=== PATIENT | male | born 1960 | race Caucasian/White ===

== ENCOUNTER 2018-06-16 21:55 | Emergency (ER) | payer SELFPAY ==
--- NOTE | 2018-06-16 21:58 | ER Report ---
History and Physical Time Seen By MD: 21:58 HPI/ROS CHIEF COMPLAINT: Right flank pain HISTORY OF PRESENT ILLNESS: Patient is a 57-year-old male here with complaints of right flank pain which started this morning. Per patient report, the pain became unbearable this evening prompting evaluation. Patient reports prior history of nephrolithiasis with similar symptoms of right flank pain and CVA tenderness and radiation to the right groin. Patient denies trauma, fevers, chills, chest pain, shortness breath. Patient is in moderate distress at time of evaluation. REVIEW OF SYSTEMS: Constitutional: No fever, no chills. Eyes: No discharge. ENT: No sore throat. Cardiovascular: No chest pain, no palpitations. Respiratory: No cough, no shortness of breath. Gastrointestinal: + RLQ abdominal pain Genitourinary: No hematuria. Musculoskeletal: + Right CVA tenderness and flank pain. Skin: No rashes. Neurological: No headache. Allergies: Coded Allergies: No Known Drug Allergies (Unverified , 06/16/18) Home Meds Active Scripts Ondansetron (ZOFRAN ODT) 4 Mg Tab.rapdis, 4 MG PO Q6H Y for NAUSEA/VOMITING, # 20 TAB.ALEXA 0 Refills Prov:MARIYA WISDOM DO 06/16/18 Tramadol Hcl (TRAMADOL HCL) 50 Mg Tablet, 50 MG PO Q6H Y for PAIN, #12 TAB 0 Refills Prov:MARIYA WISDOM DO 06/16/18 Tamsulosin Hcl (FLOMAX) 0.4 Mg Cap.er.24h, 0.4 MG PO QDAY, #14 CAP 0 Refills Prov:MARIYA WISDOM DO 06/16/18 Constitutional Vital Sign - Last 24 Hours 06/16/18 06/16/18 06/16/18 06/16/18 22:03 22:10 22:30 22:48 Temp 99.0 Pulse 81 93 Resp 24 B/P (MAP) 148/70 105/70 (82) 136/78 (97) Pulse Ox 96 77 O2 Delivery Room Air 06/16/18 06/16/18 06/16/18 06/16/18 22:55 23:00 23:10 23:25 Pulse 77 84 85 B/P (MAP) 136/80 (98) Pulse Ox 97 97 91 06/16/18 06/16/18 23:30 23:40 Pulse ??? B/P (MAP) 126/77 (93) Pulse Ox 92 Physical Exam General Appearance: The patient is alert, has no immediate need for airway protection and no signs of toxicity. + moderate distress due to pain Eyes: Pupils equal and round no pallor or injection. ENT, Mouth: Mucous membranes are moist. Respiratory: There are no retractions, lungs are clear to auscultation. Cardiovascular: Regular rate and rhythm. Gastrointestinal: Abdomen is soft and + tender in the RLQ, no masses, bowel sounds normal. Neurological: No focal deficits Skin: Warm and dry, no rashes. Musculoskeletal: + Right flank pain and CVA tenderness. Extremities are nontender, nonswollen and have full range of motion. DIFFERENTIAL DIAGNOSIS: After history and physical exam differential diagnosis was considered for flank pain including but not limited to musculoskeletal causes, kidney stone, pyelonephritis, shingles, and intra-abdominal causes such as diverticulitis and appendicitis. Medical Decision Making Data Points Result Diagram: 06/16/18 2212 06/16/18 2255 Laboratory Hematology Test 06/16/18 22:12 06/16/18 22:20 06/16/18 22:55 Red Blood Count 4.56 M/uL (4.00-5.60) Mean Corpuscular Volume 91.0 fL (80.0-96.0) Mean Corpuscular Hemoglobin 32.1 pg (26.0-33.0) Mean Corpuscular Hemoglobin Concent 35.3 g/dL (32.0-36.0) Red Cell Distribution Width 13.2 % (11.5-14.5) Mean Platelet Volume 7.9 fL (7.2-11.1) Neutrophils (%) (Auto) 68.2 % (39.4-72.5) Lymphocytes (%) (Auto) 21.4 % (17.6-49.6) Monocytes (%) (Auto) 7.8 % (4.1-12.4) Eosinophils (%) (Auto) 2.2 % (0.4-6.7) Basophils (%) (Auto) 0.4 % (0.3-1.4) Nucleated RBC Relative Count (auto) 0.0 /100WBC Neutrophils # (Auto) 5.1 K/uL (2.0-7.4) Lymphocytes # (Auto) 1.6 K/uL (1.3-3.6) Monocytes # (Auto) 0.6 K/uL (0.3-1.0) Eosinophils # (Auto) 0.2 K/uL (0.0-0.5) Basophils # (Auto) 0.0 K/uL (0.0-0.1) Nucleated RBC Absolute Count (auto) 0.00 K/uL Sodium Level 142 mmol/L (137-145) Chloride Level 108 mmol/L (98-107) Carbon Dioxide Level 24 mmol/L (22-30) Blood Urea Nitrogen 16 mg/dl (9-21) Creatinine 1.20 mg/dl (0.66-1.25) Glomerular Filtration Rate Calc > 60.0 Random Glucose 133 mg/dl (75-110) Calcium Level 8.0 mg/dl (8.4-10.2) Total Bilirubin 0.4 mg/dl (0.2-1.3) Aspartate Amino Transf (AST/SGOT) 24 U/L (0-35) Alanine Aminotransferase (ALT/SGPT) 26 U/L (0-56) Alkaline Phosphatase 75 U/L (0-126) Total Protein 6.4 g/dl (6.3-8.2) Albumin 3.7 g/dl (3.5-5.0) Lipase 86 U/L (23-300) Urine Color Yellow Urine Clarity Slightly-cloudy Urine pH 5.0 pH (4.8-9.5) Urine Specific [place] 1.024 Urine Protein Negative mg/dL (NEGATIVE) Urine Glucose (UA) Negative mg/dL (NEGATIVE) Urine Ketones Negative mg/dL (NEGATIVE) Urine Blood Large (NEGATIVE) Urine Nitrite Negative (NEGATIVE) Urine Bilirubin Negative (NEGATIVE) Urine Urobilinogen 2.0 mg/dL (0.2-1.9) Urine Leukocyte Esterase Negative (NEGATIVE) Urine RBC 92 /HPF (0-2/HPF) Urine WBC 1 /HPF (0-5/HPF) Urine Squamous Epithelial Cells Few /LPF (</=FEW) Urine Calcium Oxalate Crystals Many /HPF (NONE) Urine Bacteria Negative /HPF (NONE-FEW) Urine Mucus Few /HPF (NONE-FEW) Potassium Level 3.2 mmol/L (3.5-5.0) Chemistry Test 06/16/18 22:12 06/16/18 22:20 White Blood Count 7.5 k/uL (4.5-11.0) Red Blood Count 4.56 M/uL (4.00-5.60) Hemoglobin 14.6 g/dL (14.0-18.0) Hematocrit 41.5 % (42.0-52.0) Mean Corpuscular Volume 91.0 fL (80.0-96.0) Mean Corpuscular Hemoglobin 32.1 pg (26.0-33.0) Mean Corpuscular Hemoglobin Concent 35.3 g/dL (32.0-36.0) Red Cell Distribution Width 13.2 % (11.5-14.5) Platelet Count 182 K/uL (150-450) Mean Platelet Volume 7.9 fL (7.2-11.1) Neutrophils (%) (Auto) 68.2 % (39.4-72.5) Lymphocytes (%) (Auto) 21.4 % (17.6-49.6) Monocytes (%) (Auto) 7.8 % (4.1-12.4) Eosinophils (%) (Auto) 2.2 % (0.4-6.7) Basophils (%) (Auto) 0.4 % (0.3-1.4) Nucleated RBC Relative Count (auto) 0.0 /100WBC Neutrophils # (Auto) 5.1 K/uL (2.0-7.4) Lymphocytes # (Auto) 1.6 K/uL (1.3-3.6) Monocytes # (Auto) 0.6 K/uL (0.3-1.0) Eosinophils # (Auto) 0.2 K/uL (0.0-0.5) Basophils # (Auto) 0.0 K/uL (0.0-0.1) Nucleated RBC Absolute Count (auto) 0.00 K/uL Glomerular Filtration Rate Calc > 60.0 Calcium Level 8.0 mg/dl (8.4-10.2) Total Bilirubin 0.4 mg/dl (0.2-1.3) Aspartate Amino Transf (AST/SGOT) 24 U/L (0-35) Alanine Aminotransferase (ALT/SGPT) 26 U/L (0-56) Alkaline Phosphatase 75 U/L (0-126) Total Protein 6.4 g/dl (6.3-8.2) Albumin 3.7 g/dl (3.5-5.0) Lipase 86 U/L (23-300) Urine Color Yellow Urine Clarity Slightly-cloudy Urine pH 5.0 pH (4.8-9.5) Urine Specific [place] 1.024 Urine Protein Negative mg/dL (NEGATIVE) Urine Glucose (UA) Negative mg/dL (NEGATIVE) Urine Ketones Negative mg/dL (NEGATIVE) Urine Blood Large (NEGATIVE) Urine Nitrite Negative (NEGATIVE) Urine Bilirubin Negative (NEGATIVE) Urine Urobilinogen 2.0 mg/dL (0.2-1.9) Urine Leukocyte Esterase Negative (NEGATIVE) Urine RBC 92 /HPF (0-2/HPF) Urine WBC 1 /HPF (0-5/HPF) Urine Squamous Epithelial Cells Few /LPF (</=FEW) Urine Calcium Oxalate Crystals Many /HPF (NONE) Urine Bacteria Negative /HPF (NONE-FEW) Urine Mucus Few /HPF (NONE-FEW) Urinalysis Test 06/16/18 22:20 Urine Color Yellow Urine Clarity Slightly-cloudy Urine pH 5.0 pH (4.8-9.5) Urine Specific [place] 1.024 Urine Protein Negative mg/dL (NEGATIVE) Urine Glucose (UA) Negative mg/dL (NEGATIVE) Urine Ketones Negative mg/dL (NEGATIVE) Urine Blood Large (NEGATIVE) Urine Nitrite Negative (NEGATIVE) Urine Bilirubin Negative (NEGATIVE) Urine Urobilinogen 2.0 mg/dL (0.2-1.9) Urine Leukocyte Esterase Negative (NEGATIVE) Urine RBC 92 /HPF (0-2/HPF) Urine WBC 1 /HPF (0-5/HPF) Urine Squamous Epithelial Cells Few /LPF (</=FEW) Urine Calcium Oxalate Crystals Many /HPF (NONE) Urine Bacteria Negative /HPF (NONE-FEW) Urine Mucus Few /HPF (NONE-FEW) EKG/Imaging Imaging CT of the abdomen and pelvis without contrast: Indication: Right flank pain. Technique: Helical CT was performed through the abdomen and pelvis without contrast. Multiplanar reconstructions are reviewed. One of the following dose optimization techniques was utilized in the performance of this exam: Automated exposure control; adjustment of the mA and/ or kV according to the patient's size; or use of an iterative reconstruction technique. Specific details can be referenced in the facility's radiology CT exam operational policy. Comparison: None. Lower lung pina: No parenchymal or pleural abnormality is identified. Liver: Normal in size, shape, and density. Gallbladder/biliary tree: Multiple small calculi are present in the lumen of the gallbladder. The gallbladder is not distended. The bile ducts are normal in caliber. Pancreas: There is a small calcification in the head, of uncertain etiology. The pancreas is otherwise normal in size, shape, and density. There are no signs of peripancreatic inflammation or fluid. Spleen: Normal in size, shape, and density. Adrenal glands: Within normal limits. Kidneys/urinary bladder: There is an obstructing calculus at the right ureterovesical junction, measuring 3 mm size. There is mild dilatation of the right ureter and intrarenal collecting structures. Multiple tiny nonobstructing calculi are present in both kidneys. There is a large simple cyst arising from the cortex of the left kidney, measuring up to 12.4 cm in size. There are no signs of obstruction on the left. The urinary bladder is unremarkable, as visualized. Intestinal structures: Unremarkable, as visualized. There are no signs of obstruction or focal inflammatory changes. The appendix appears normal. Pelvis: Dystrophic calcifications are present in the prostate. The prostate is not enlarged. The pelvis is otherwise unremarkable. Aorta and vascular structures: Within normal limits. Ascites or fluid collections: None seen. Skeletal structures: There are mild degenerative changes in the spine. No acute skeletal deformity is identified. Impression: There is a 3 mm obstructing calculus at the right ureterovesical junction. Multiple small nonobstructing calculi are present in both kidneys. There is a large simple cyst arising from the left kidney. ED Course/Re-evaluation ED Course Patient is a 57-year-old male here with complaints of right flank pain and CVA tenderness with radiation to the groin similar to prior kidney stone. Patient labs are unremarkable. CT imaging showed a 3 mm obstructing stone in the distal right ureter. Patient was given Reglan, IV lidocaine, fluid bolus, Toradol, morphine and Zofran. Patient was given tramadol, zofran and Flomax for outpatient treatment. Due to size of the stone, outpatient treatment was appropriate. Urinalysis showed no acute infection. Patient had significant relief of pain at time of discharge. Decision to Disposition Date: Jun 16, 2018 Decision to Disposition Time: 23:51 Depart Departure Latest Vital Signs Vital Signs Date Time Temp Pulse Resp B/P (MAP) Pulse Ox O2 Delivery O2 Flow Rate FiO2 06/16/18 23:40 ??? 92 06/16/18 23:30 126/77 (93) 06/16/18 22:03 99.0 24 Room Air Impression: Primary Impression: Ureterolithiasis Condition: Improved Disposition: HOME OR SELF-CARE New Scripts Ondansetron (ZOFRAN ODT) 4 Mg Tab.rapdis 4 MG PO Q6H Y for NAUSEA/VOMITING, #20 TAB.ALEXA 0 Refills Prov: MARIYA WISDOM DO 06/16/18 Tramadol Hcl (TRAMADOL HCL) 50 Mg Tablet 50 MG PO Q6H Y for PAIN, #12 TAB 0 Refills Prov: MARIYA WISDOM DO 06/16/18 Tamsulosin Hcl (FLOMAX) 0.4 Mg Cap.er.24h 0.4 MG PO QDAY, #14 CAP 0 Refills Prov: MARIYA WISDOM DO 06/16/18 Patient Instructions: Kidney Stones (ED) Additional Instructions: You may take 1 tramadol every 8 hours as needed for pain control. You may take 500 mg of approximately every 12 hours as needed for pain control. You may take Zofran 1 tablet every 6-8 hours as needed for nausea. Take 1 tablet of Flomax daily. Please return promptly if you develop fevers, worsening abdominal pain, inability to tolerate oral intake, MARIYA WISDOM DO Jun 16, 2018 21:58
[2018-06-16] MEDS ORDERED: NS(*) 0.9% 1000 ML BAG 1,000 ML IV ONE (22:07)
[2018-06-16] MEDS ORDERED: METOCLOPRAMIDE 10 MG/2 ML SDV IVP ONE (22:10)
[2018-06-16] MEDS ORDERED: LIDOCAINE 2% MDV 400MG/20ML VL INFIL ONE (22:10)
[2018-06-16] MEDS ORDERED: KETOROLAC 30 MG/ML VIAL IVP ONE (22:10)
[2018-06-16 22:18] LABS: PLATELET COUNT, AUTOMATED 182 K/uL (150-450)
[2018-06-16] MEDS ORDERED: POTASSIUM CHL 20 MEQ TABCR PO SCH (22:30)
[2018-06-16] MEDS ORDERED: EMS NS 0.9%(*) 1000 ML BAG 1,000 ML IV ONE (22:45)
[2018-06-16] MEDS ORDERED: TRAM-420 PO (23:15)
[2018-06-16] MEDS ORDERED: ONDA4TAB PO (23:15)
[2018-06-16] MEDS ORDERED: TAMS0.4C25 PO (23:15)
[2018-06-16] MEDS ORDERED: MORPHINE 4 MG/ML SDV IVP ONE (23:15)
[2018-06-16] MEDS ORDERED: traMADol 50 MG TAB TH 2 TAB/BOTTLE PO ONE (23:20)
[2018-06-16] MEDS ORDERED: ONDANSETRON 4 MG ODT TH SL ONE (23:20)
[2018-06-16 23:30] VITALS: BP 126/77
--- NOTE | 2018-06-16 23:37 | RADIOLOGY IMAGING REPORT ---
FACILITY: [facility] PATIENT NAME: Itz Alcala : 1960 MR: [id number] V: [id number] EXAM DATE: ORDERING PHYSICIAN: MARIYA WISDOM TECHNOLOGIST: Location: [facility] [place] Patient: Itz Alcala : 1960 Visit/Account:[id number] Date of Sevice: 06/16/2018 CT of the abdomen and pelvis without contrast: Indication: Right flank pain. Technique: Helical CT was performed through the abdomen and pelvis without contrast. Multiplanar rec onstructions are reviewed. One of the following dose optimization techniques was utilized in the performance of this exam: Autom ated exposure control; adjustment of the mA and/or kV according to the patient's size; or use of an i terative reconstruction technique. Specific details can be referenced in the facility's radiology CT exam operational policy. Comparison: None. Lower lung pina: No parenchymal or pleural abnormality is identified. Liver: Normal in size, shape, and density. Gallbladder/biliary tree: Multiple small calculi are present in the lumen of the gallbladder. The gal lbladder is not distended. The bile ducts are normal in caliber. Pancreas: There is a small calcification in the head, of uncertain etiology. The pancreas is otherwis e normal in size, shape, and density. There are no signs of peripancreatic inflammation or fluid. Spleen: Normal in size, shape, and density. Adrenal glands: Within normal limits. Kidneys/urinary bladder: There is an obstructing calculus at the right ureterovesical junction, measu ring 3 mm size. There is mild dilatation of the right ureter and intrarenal collecting structures. Multiple tiny nonobstructing calculi are present in both kidneys. There is a large simple cyst arising from the cortex of the left kidney, measuring up to 12.4 cm in s ize. There are no signs of obstruction on the left. The urinary bladder is unremarkable, as visualized. Intestinal structures: Unremarkable, as visualized. There are no signs of obstruction or focal inflam matory changes. The appendix appears normal. Pelvis: Dystrophic calcifications are present in the prostate. The prostate is not enlarged. The pelv is is otherwise unremarkable. Aorta and vascular structures: Within normal limits. Ascites or fluid collections: None seen. Skeletal structures: There are mild degenerative changes in the spine. No acute skeletal deformity is identified. Impression: There is a 3 mm obstructing calculus at the right ureterovesical junction. Multiple small nonobstructing calculi are present in both kidneys. There is a large simple cyst arising from the left kidney. Report Dictated By: Pavel Harper MD at 06/16/2018 11:24 PM Report E-Signed By: Pavel Harper MD at 06/16/2018 11:34 PM WSN:[id number]
[2018-06-16] MEDS ORDERED: TAMSULOSIN HCL 0.4 MG CAP PO ONE (23:40)
== END 2018-06-16 23:51 | disposition home or self-care (01) ==
LOC: ER 22:29
DX: N20.1 Calculus of ureter (principal)
CPT/HCPCS: 36415; 74176; 81001; 83690; 85025; 96361; 96374; 96375; 99284; C9399; J1885; J2001; J2270; J2765; S0119; 82040; 82247; 82310; 82374; 82435; 82565; 82947; 84075; 84132; 84155; 84295; 84450; 84460; 84520

== ENCOUNTER → 2018-06-16 | Outpatient (CLI) | payer SELFPAY ==
[~2018-06-16] MED LIST: ONDA4TAB PO; TAMS0.4C25 PO; TRAM-420 PO
== END ==
LOC: AMB 21:34
PROVIDERS: ATTEND Nurse Practitioner
DX: M54.9 Dorsalgia, unspecified (principal); R10.30 Lower abdominal pain, unspecified
CPT/HCPCS: A0425; A0433